=== PATIENT | female | born 1990 | race Caucasian/White ===

== ENCOUNTER 2022-10-04 10:33 | Inpatient (IN) | payer BC ==
[2022-10-03 13:07] LABS: Hemoglobin 12.1 g/dL (12.0-15.5); Platelet Count 211 10x3/uL (150-450)
[2022-10-03 13:44] LABS: HBSAg Index 0.21 S/CO (0-0.99); Hep B Surf Ag Non-Reactive S/CO (NonReactive)
[2022-10-03 13:45] LABS: Syphilis Antibody Nonreactive (Nonreactive); Syphilis Antibody Index 0.05 S/CO (<1.00 Non-Reactive)
[2022-10-04] MEDS ORDERED: Famotidine/PF 20 mg/2ml Vial SLOW IVP PRN (10:50)
[2022-10-04] MEDS ORDERED: Carboprost 250 MCG/ML AMP IM PRN (10:50)
[2022-10-04] MEDS ORDERED: Misoprostol 200 MCG TAB PR PRN (10:50)
[2022-10-04] MEDS ORDERED: NS w/ Oxytocin 30 units 500 ML IV SCH (10:50)
[2022-10-04] MEDS ORDERED: CEFAZOLIN 2 GM in Sodium Chloride 0.9% 100 ML IVPB SCH (10:50)
[2022-10-04] MEDS ORDERED: Docusate 100 MG CAP PO PRN (10:50)
[2022-10-04] MEDS ORDERED: Promethazine HCl 25 MG/ML VIAL IM PRN ×2 (10:50→11:24)
[2022-10-04] MEDS ORDERED: Acetaminophen 500 MG TAB PO PRN (10:50)
[2022-10-04] MEDS ORDERED: Diphenoxylate HCl/Atropine Tablet PO PRN ×2 (10:50)
[2022-10-04] MEDS ORDERED: Ondansetron PF 4 MG/2 ML Vial IVP PRN ×2 (10:50→11:24)
[2022-10-04] MEDS ORDERED: Bicitra 30 ML UDCUP PO PRN (10:50)
[2022-10-04] MEDS ORDERED: Butorphanol Tartrate 1 MG/ML VIAL SLOW IVP PRN (10:50)
[2022-10-04] MEDS ORDERED: hydrALAZINE 20 MG/ML VIAL SLOW IVP PRN (10:50)
[2022-10-04] MEDS ORDERED: Ondansetron PF 4 MG/2 ML Vial ONE (11:19)
[2022-10-04] MEDS ORDERED: Morphine PF 10 MG/10 ML VIAL ONE (11:19)
[2022-10-04] MEDS ORDERED: PHENYLEPHRINE-NS 100 MCG/ML 10 ML SYRINGE ONE (11:19)
[2022-10-04] MEDS ORDERED: Dexamethasone 4 mg/ml Vial ONE (11:19)
[2022-10-04] MEDS ORDERED: Oxytocin 10 UNITS/ML VIAL ONE ×2 (11:19→13:06)
[2022-10-04 11:23] VITALS: BMI 33.3
[2022-10-04] MEDS ORDERED: L&D-Morphine 4 MG/ML VIAL SLOW IVP PRN (11:24)
[2022-10-04] MEDS ORDERED: Meperidine HCl/PF 25 MG/ML VIAL SLOW IVP PRN (11:24)
[2022-10-04] MEDS ORDERED: Ondansetron HCl/PF 4 MG/2 ML Vial IVP PRN (11:24)
[2022-10-04] MEDS ORDERED: Moisturizing Cream (Eucerin) 113 GM JAR TOP PRN (11:24)
[2022-10-04] MEDS ORDERED: Naloxone HCl 0.4 mg/ml Vial IVP PRN ×2 (11:24)
[2022-10-04] MEDS ORDERED: Naloxone HCl 0.4 mg/ml Vial IV PRN (11:24)
[2022-10-04] MEDS ORDERED: Promethazine HCl 25 MG SUPP PR PRN (11:24)
[2022-10-04] MEDS ORDERED: Fentanyl 100 MCG/2 ML VIAL SLOW IVP PRN (11:24)
[2022-10-04] MEDS ORDERED: diphenhydrAMINE 50 MG/ML VIAL IVP PRN (11:24)
[2022-10-04] MEDS ORDERED: Ketorolac Tromethamine 30 MG/ML VIAL IVP SCH (11:30)
[2022-10-04] MEDS ORDERED: Communication Order-Pharmacy FS SCH (11:30)
[2022-10-04] MEDS: Lactated Ringer's 1,000 ML IV SCH (11:48)
[2022-10-04] MEDS ORDERED: Ketorolac Tromethamine 30 MG/ML VIAL ONE (13:06)
[2022-10-04] MEDS ORDERED: Boostrix 0.5 ML (Tdap) VIAL (>/=7 yrs of age) IM ONE (15:58)
[2022-10-04] MEDS ORDERED: Acetaminophen 325 MG TAB PO PRN (15:58)
[2022-10-04] MEDS ORDERED: Methylergonovine 0.2 MG/ML VIAL IM PRN (15:58)
[2022-10-04] MEDS: Ketorolac Tromethamine 30 MG/ML VIAL IVP PRN (21:03)
[2022-10-04] MEDS: Ferrous Sulfate 325 MG TAB PO SCH (21:04)
[2022-10-04] MEDS ORDERED: HYDROcodone/Acetaminophen 5/325 mg Tablet PO PRN (23:30)
[2022-10-04] MEDS ORDERED: HYDROcodone/Acetaminophen 10/325 mg Tablet PO PRN ×2 (23:30)
[2022-10-05 03:44] LABS: Hemoglobin 10.2 g/dL (12.0-15.5); Mean Corpuscular HGB CONC 34.6 g/dL (32.0-36.0); Mean Corpuscular Hemoglobin 31.5 pg (27.0-33.0); Mean Platelet Volume 10.3 fl (7.4-10.4); Platelet Count 183 10x3/uL (150-450); RBC Distribution Width 12.2 % (11.5-14.5); Red Blood Cell (RBC) Count 3.24 10x6/uL (3.90-5.03); White Blood Cell (WBC) Count 10.3 10x3/uL (3.5-10.5)
[2022-10-05] MEDS: Ketorolac Tromethamine 30 MG/ML VIAL IVP PRN (06:21)
[2022-10-05] MEDS: Ferrous Sulfate 325 MG TAB PO SCH ×2 (07:18→21:00)
[2022-10-05] MEDS: Polyethylene Glycol 3350 17 GM Packet PO SCH (08:30)
[2022-10-05] MEDS: Prenatal Vitamin 1 TAB PO SCH (08:30)
[2022-10-05] MEDS: HYDROcodone/Acetaminophen 5/325 mg Tablet PO PRN ×3 (08:30→20:26)
[2022-10-05] MEDS: Lactated Ringer's 1,000 ML IV SCH ×3 (11:00→17:15)
[2022-10-05] MEDS: Simethicone Chewable 80 MG TAB PO PRN ×2 (16:41→20:25)
[2022-10-05] MEDS: Ibuprofen 800 MG TAB PO SCH (21:38)
[2022-10-06] MEDS: Ibuprofen 800 MG TAB PO SCH (06:47)
[2022-10-06] MEDS: Lactated Ringer's 1,000 ML IV SCH ×2 (06:57→06:58)
[2022-10-06] MEDS: Ferrous Sulfate 325 MG TAB PO SCH (07:27)
[2022-10-06 08:37] VITALS: BP 116/74; TEMP 98.7
[2022-10-06] MEDS: Prenatal Vitamin 1 TAB PO SCH (09:12)
[2022-10-06] MEDS: Polyethylene Glycol 3350 17 GM Packet PO SCH (09:13)
== END 2022-10-06 11:09 | disposition home or self-care (01) | DRG 787 ==
LOC: CSHLD 10:33 → CSHPED 15:48
PROVIDERS: ADMIT Obstetrics & Gynecology; ATTEND Obstetrics & Gynecology
PROC: 10D00Z1 Extraction of Products of Conception, Low, Open Approach (ICD-10-PCS; principal; 2022-10-04)
DX: O34.211 Maternal care for low transverse scar from previous cesarean delivery (principal); D62 Acute posthemorrhagic anemia; Z3A.39 39 weeks gestation of pregnancy; Z37.0 Single live birth; O24.429 Gestational diabetes mellitus in childbirth, unspecified control; O90.81 Anemia of the puerperium; Z79.899 Other long term (current) drug therapy; Z79.82 Long term (current) use of aspirin
CPT/HCPCS: 36415; 36416; 51702; 85014; 85018; 85027; 85049; 86780; 86850; 86900; 86901; 87340; J1100; J1885; J2274; J2405; J2590; J3490; J7120; S0028